=== PATIENT | male | born 1985 | race Caucasian/White ===

== ENCOUNTER 2017-05-01 17:25 | Inpatient (IN) | payer OTHER ==
[~2017-05-01] VITALS: Ht 165.1 cm; Wt 100.7 kg
[2017-05-01] VITALS (8 sets, daily range): BP systolic 109–150; BP diastolic 55–97
[~2017-05-01 17:25] MED LIST: CIPRO 500MG TA500 MG PO; LORTAB 5/500 501 TAB PO; NOMEDS XX
[2017-05-01 17:53] LABS: URINE BILIRUBIN - DIPSTICK NEGATIVE (NEG); URINE BLOOD NEGATIVE (NEG)
[2017-05-01 18:00] LABS: HEMOGLOBIN 16.3 g/dL (14.1-18.0); LYMPH # 3.3 K/mm3 (0.7-4.5); LYMPH % 21.7 % (10-50)
[2017-05-01 18:01] LABS: URINE SQUAMOUS CELLS OCC #/hpf (OCC)
[2017-05-01 18:03] LABS: AMPHETAMINES/METAMPHETAMINES NEGATIVE ng/mL (<1000)
--- NOTE | 2017-05-01 19:07 | Emergency Room Report ---
History of Present Illness Time Seen by 1830 Presenting Problem in Triage Pt arrived:Walked Presenting Problem:CHEST PAIN FOR TWO DAYS INTERMITTENTLY. LEFT MID CHEST.ENDORSES SOA ALSO WITH EPISODES OF CHEST PAIN. EPISODES OF LEFT ARM WEAKNESS, TINGLING TODAY. 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 N Clinical Suspician of Infection? N Mental Status: 1 - Regular (Normal Baseline) Sepsis Risk:Possible Sepsis Risk Have you (or family members/close friends) recently traveled outside the [place]? N If Yes, where/when: Have you had exposure to infectious disease within the past month? TB? Other? Specify: Source patient, RN notes reviewed, RN/MD Exam Limitations no limitations Comment This is a 31-year-old gentleman arriving to the emergency room with chest pain since Saturday (past 4 days), triggered by activity, relieved by rest. Patient describes the pain is precordial, squeezing in nature, radiating to his LEFT jaw, LEFT shoulder and down the LEFT upper extremity, associated with palpitations and shortness of breath. Patient spent 2 days at [facility], Saturday and Saturday, thinking that he has a "cold", however, upon returning back call his chest pain progressed. He went to work today where he realized that his pain is actually more pronounced, more intense, more correlating with activity. Patient has a history of cocaine abuse while he was in his 20s. The most recently abused drug was made marijuana approximately one year ago. His father has developed "heart problems, congestive heart failure" in his 40s. Patient smokes one pack visit today. Cardiac Chest Pain Chest pain indicative of cardiac Yes Timing/Duration 4 days Timing/Duration 4 days Severity moderate Modifying Factors Improves With: lying down. Worsens With: exertion, movement, palpatioin. Associated Symptoms chest pain ALLERGIES Coded Allergies: Penicillins (05/01/17) Home Medications Reported Medications No Home Medications (NO HOME MEDICATIONS) 1 EACH XX ONCE History Medical History General Angina: No MS: No Hypertension? No Hyperlipidemia? No CHF? No COPD? No Asthma? No Hernia? No CVA? No Seizures? No Diabetes? No UTI? No Stones? No GB Disease: No Hepatitis? No Cataracts? No Glaucoma? No MRSA? No TB? No Cancer? No Immunization Hx DT/Tetanus > 10 Years Ago Flu IN PAST Pneumonia Never Had Surgical Hx Previous Surgery?N Family History Family Hx Diabetes No CAD No Hypertension No Hyperlipidemia No Cancer No TB No Social History Smoking Hx Smoker: Current Every Day Smoker Tobacco: Yes Type Cigarettes Packs/day 1 1/2 - 2 Packs Alcohol Alcohol: No Review of Systems All Other Systems Reviewed and Negative Respiratory shortness of breath Cardiovascular chest pain, palpitations Physical Exam Vital Signs Vital Signs Date Time Temp Pulse Resp B/P Pulse O2 O2 Flow FiO2 Ox Delivery Rate 05/01 2000 99.0 75 20 130/97 98 05/01 1950 99.0 75 20 130/97 98 ROOM AIR 05/01 1941 98.5 118 20 150/95 97 05/01 1726 98.5 118 20 150/95 97 General Appearance normal appearance, WD/WN, moderate distress Neck normal inspection, non-tender, supple, full range of motion Respiratory Status Yes: trachea midline, chest symmetrical, non tender chest. No: respiratory distress. Lung Sounds bilateral: normal breath sounds, lungs clear. Cardiovascular tachycardia Peripheral Pulses Pulses normal Yes Gastrointestinal normal bowel sounds, normal exam, non tender, soft, no organomegaly Back normal inspection, no CVA tenderness, no vertebral tenderness Extremities non-tender, normal range of motion, normal inspection Neurologic alert, can repairer II-XII nml as tested, normal exam, oriented x 3 Mental status anxious Skin intact, normal color, warm/dry Medical Decision Making LABS/Meds/Orders Pt receiving controlled substance in ED? No Comment 19:00-case d/w Dr Hager, advised of patient's history, presentation and findings, agreeable with hospitalization and management (Brillenta, Lovenox, Nitro gtt, ASA), plan to perform a cardiac catheterization in the morning. 19:10-case d/w Max, advised of all the above, agreeable with hospitalization as well. Care transferred Dr. Hager and Dr. Santana at this time. I will write temporary admission orders per hospital protocol. Upon patient's isn't patient to the floor the Intensive Care Unit nurse will contact both attending physicians in order to obtain full inpatient admission orders. Results/Orders Laboratory Tests 05/01/17 1740: Opiates Screen NEGATIVE, Urine Methadone Screen NEGATIVE, Barbiturates NEGATIVE, Phencyclidine Screen NEGATIVE, Amphetamines Screen NEGATIVE, Benzodiazepines Screen NEGATIVE, Cocaine Screen NEGATIVE, Marijuana (THC) Screen NEGATIVE, Urine Color YELLOW, Urine Appearance CLOUDY, Urine pH 8.0, Ur Specific [place] 1.015, Urine Protein NEGATIVE, Urine Ketones NEGATIVE, Urine Blood NEGATIVE, Urine Nitrate NEGATIVE, Urine Bilirubin NEGATIVE, Urine Urobilinogen 0.2, Ur Leukocyte Esterase NEGATIVE, Urine RBC OCC, Urine WBC OCC, Ur Squamous Epith Cells OCC, Amorphous Sediment 2+, Urine Bacteria 2+, Urine Glucose NEGATIVE 05/01/17 1725: Sodium 141, Potassium 3.8, Chloride 103, Carbon Dioxide 27, BUN 11, Creatinine 0.9, Estimated Creat Clear 177, Estimated GFR (MDRD) 99, Glucose 111 H, Calcium 9.1, Total Bilirubin 0.2, AST 39 H, ALT 106 H, Alkaline Phosphatase 93, Creatine Kinase 178, CK-MB (CK-2) Rel Index 2.9, CK and CKMB Interp 5.2 H, Troponin I 0.45 H, Total Protein 7.9, Albumin 3.9, Globulin 4.0 H, Albumin/ Globulin Ratio 1.0 L, WBC 15.3 H, RBC 5.27, Hgb 16.3, Hct 46.6, MCV 88.6, RDW 13.3, Plt Count 287, MPV 8.5, Gran % 71.4, Gran # 10.9 H, Total Counted 100, Lymphocytes % 21.7, Monocytes % 4.8, Eosinophils % 1.6, Basophils % 0.5, Neutrophils 75, Lymphocytes (Manual) 20, Lymphocytes # 3.3, Monocytes (Manual) 3 , Monocytes # 0.7, Eosinophils # 0.2, Eosinophils # (Manual) 2, Basophils # 0.1, Platelet Estimate NORMAL, PUBS MCHC 34.8, MCH 30.9 Current Medication Orders Sig/Celestino Start time Last Medication Dose Route Stop Time Status Admin Enoxaparin Sodium 100 MG ONCE ONE 05/01 1915 DC 05/01 SC 05/01 Metoprolol Tartrate 25 MG ONCE ONE 05/01 1915 DC 05/01 PO 05/01 1916 190 Nitroglycerin 1 IN ONCE ONE 05/01 1915 CAN TP 05/01 1916 Nitroglycerin/ 250 ML .Q25H 05/01 1915 AC 09/06 Dextrose IV 09/08 0434 1909 Ticagrelor 180 MG ONCE ONE 05/01 1915 DC 05/01 PO 05/01 191 2121 Nitroglycerin/ 250 ML .STK-MED ONE 05/01 1907 DC Dextrose IV Sodium Chloride 1,000 ML .STK-MED ONE 05/01 190 DC IV Metoprolol Tartrate 0 .STK-MED ONE 05/01 190 DC .ROUTE Nitroglycerin 0 .STK-MED ONE 05/01 190 DC .ROUTE Sodium Chloride 1,000 ML .Q1H1M 05/01 190 DC 05/01 IV 05/01 2000 190 Sodium Chloride 10 ML PRN PRN 05/01 190 AC IV 05/02 184 Sodium Chloride 1,000 ML .STK-MED ONE 05/01 184 DC IV Aspirin 324 MG ONCE ONE 05/01 1745 DC 05/01 PO 05/01 1746 1735 Sodium Chloride 10 ML PRN PRN 05/01 1745 AC IV 05/02 1732 Aspirin 0 .STK-MED ONE 05/01 173 DC .ROUTE Orders Procedure Date/time Status Decision to admit 05/01 1916 Active CULTURE, URINE 05/01 1740 Active URINALYSIS/COMPLETE 05/01 1738 Complete DRUG ABUSE SCREEN (10) 05/01 1738 Complete [facility]AD [facility] 05/01 1732 Active ELECTROCARDIOGRAM REQUEST 05/01 1732 Active IV SALINE LOCK 05/01 173 Active CBC WITH AUTO DIFF 05/01 1732 Complete CARDIAC ENZYMES 05/01 173 Complete CHEM 12 PROFILE 05/01 1732 Complete DIFFERENTIAL-WBC 05/01 1725 Complete CM/EKG CM/EKG 1 Monitor Rhythm Sinus Tachycardia Rate 126 Ectopy No Comments no acute ischemic changes EKG rate (126), rhythm (regularm tachycardic), no evid. of ischemic chgs, no ectopy CM/EKG 2 Monitor Rhythm Sinus Tachycardia Rate 101 Ectopy No Comments No acute ischemic changes EKG rate (101), rhythm (tachy, regular), no evid. of ischemic chgs, no ectopy , no EKG for comparison, non-spec. ST/Twave chgs, ST elevation, ST depression, LBBB, RBBB, ectopy, abnormal Q waves XRAY/CT/US XRAY/CT/US XRAY chest XR interpretation by reviewed by me Xray Results no infiltrates, normal heart size, normal lung inflation michell Consult MD Physician Consult Consult/PCP Dr Hager ZAC Score for N-Stemi/Angina ZAC N-STEMI SCORE ZAC N-STEMI SCORE Response Value Age of patient Less than 65 yrs 0 Number of risk factors for CAD Presence of less than 3 0 Prior coronary artery stenosis (seen in angiography) Less than 50% 0 ST-Segment deviation on ECG (>1 min) Absent 0 Prior aspirin intake No ASA in the last 7 days 0 Severe anginal chest pain 2 or more episodes/24hr 1 Elevated cardiac markers(CK-MB or troponin) Present 1 Total 2 Risk Stratification 0-2= Low Risk Patients Complicating Factors Factors/Issues Noted Abnormal vital signs, comp.acute illness or inj, high risk presentation, other co-morbid states (drug abuse) Departure Departure Time of Disposition 1913 Disposition Still a Patient Clinical Impression Primary Impression: NSTEMI (non-ST elevated myocardial infarction) Secondary Impressions: Abnormal LFTs, History of drug abuse, Tobacco abuse Condition STABLE ED Critical Care Critical Care Yes Time spent 30-74 min Vital system(s) involved: Circulatory Failure I was present at bedside for Coordinating pt's care, Interpreting EKGs/Strips , During my initial exam, Reviewing lab results, Reviewing old records, Discussing pt condition, For re-examinations, Examining radiographs If Critical Care minutes are documented, the time involved in the performance of seperately reportable procedures was not counted toward critical care time documented. I directly delivered medical care to this critically ill and/or injured patient. Timely evaluation and treatment was necessary to address the significant organ system(s) dysfunction present in this patient. at 0906
[2017-05-01 19:11] LABS: NEUTROPHILS 75 % (42-76)
--- NOTE | 2017-05-01 20:01 | HISTORY AND PHYSICAL REPORT ---
History and Physical ([facility]) Date of admission: 05/01/17 Chief complaint: Chest pain History: History of Present Illness: This 31-year-old white male is admitted with chest pain and apparent myocardial infarction. He states that he had pain through the weekend while he was at [facility]. It was exertional pain. It was associated with shortness of breath. He actually worked the past 2 days but persisted with pain on exertion. He presents to the emergency room this evening with tachycardia and chest pain. His troponin is elevated. There is suggestion of anterior lateral ST elevation which is evident after his tachycardia was treated. Dr. Hager has been contacted. Patient will be monitored in the unit tonight. Cardiac cath will be performed in the morning. Past Medical History: Medical History: CAD? No (no prior history) Angina: Yes (apparently from his history) MS: No (no prior known MS) Hypertension? Yes Hyperlipidemia? No CHF? No DVT? No PE? No COPD? No (1 pack per day) Asthma? No Anemia? No GERD? No Gastric ulcers? No GI Bleed? No Hernia? No Thyroid Problems? No Hypothyroidism? No CVA? No Seizures? No Diabetes? No Renal Insuffiency? No UTI? No Stones? No BPH? No GB Disease: No Hepatitis? No Arthritis? No Migraines? No Cataracts? No Glaucoma? No MRSA? No HIV? No TB? No Anxiety? No Depression? No Cancer? No Surgical history: Previous Surgery? Finger laceration repair Sebaceous cyst removal Oral surgery-complete dental extractions Medications: Reported Medications No Home Medications (NO HOME MEDICATIONS) 1 EACH XX ONCE Allergies: Coded Allergies: Penicillins (05/01/17) Family History: Family history: Postive for: CAD, CAD under 40 yrs of age, cancer, hyperlipidemia. Negative for : gall bladder disease, stroke. Additional family history: His father of heart disease in his 40s. The patient is and has one biologic child and 4 stepchildren Social History: Smoking Hx Tobacco: Yes Smoker: Current Every Day Smoker Type: Cigarettes Packs/day: 1 1/2 - 2 Packs Are you exposed to second hand Yes Alcohol: Alcohol: No Hx of Drug Use: Drug Use? Yes Drug(s) of Choice: cocaine (in the past), more recently marijuana. 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 Review of Systems: Patient unresponsive? No Constitutional No: chills, fatigue, lethargy, malaise, weak, recent weight loss. ENT No: ear ache, nose bleed, ear drainage, hearing loss, mouth pain, nasal congestion, ear ringing, sinus problems, sore throat, throat swelling, tongue pain, tongue swelling, toothache, voice change. Cardiovascular Positive for: SEO, chest pain, palpitations. Respiratory Positive for: dyspnea on exertion, shortness of air. No: productive cough ( sputum), wheezing. GI No: GERD, abdominal pain, constipation, diarrhea, vomitting. (male) No: flank pain. Skin No: abrasions, bruising, itching, rash. Neurological No: change in LOC, bladder dysfunction, bowel dysfunction, confusion, dizziness, seizure, syncope. Immune/allergy Positive for: allergy (penicillin). Eyes No: blurry vision, vision loss. Musculoskeletal No: extremity pain, extremity swelling. Heme No: bleeding, bruising. Endocrine No: cold intolerance, polydipsia. Psychiatric Positive for: anxious, stress. No: agitation, confused, delusional, depression. Physical Exam: Vital signs: 1ST Vital Signs Result Date Time Pulse Ox 97 05/01 172 B/P 150/95 05/01 172 Temp 98.5 05/01 172 Pulse 118 05/01 172 Resp 20 05/01 172 Exam: General appearance: normal appearance, alert, no acute distress Eyes: anicteric, conjunctiva clear, PERRLA ENT: mucous membranes moist, edentulous Neck: no carotid bruit, no JVD, thyroid (normal) Cardiovascular: regular rate & rhythm, no murmur Respiratory: aerating well, clear to auscultation, chest non-tender ABD: soft, no tenderness, obese Genitourinary: normal voiding & quantity Extremities: no peripheral edema Musculoskeletal: equal muscle strength Skin: dry, intact Neuro: alert, oriented, speech clear Lab data: Labs: Laboratory Tests 05/01/17 1740: Opiates Screen NEGATIVE, Urine Methadone Screen NEGATIVE, Barbiturates NEGATIVE, Phencyclidine Screen NEGATIVE, Amphetamines Screen NEGATIVE, Benzodiazepines Screen NEGATIVE, Cocaine Screen NEGATIVE, Marijuana (THC) Screen NEGATIVE, Urine Color YELLOW, Urine Appearance CLOUDY, Urine pH 8.0, Ur Specific [place] 1.015, Urine Protein NEGATIVE, Urine Ketones NEGATIVE, Urine Blood NEGATIVE, Urine Nitrate NEGATIVE, Urine Bilirubin NEGATIVE, Urine Urobilinogen 0.2, Ur Leukocyte Esterase NEGATIVE, Urine RBC OCC, Urine WBC OCC, Ur Squamous Epith Cells OCC, Amorphous Sediment 2+, Urine Bacteria 2+, Urine Glucose NEGATIVE 05/01/17 1725: Sodium 141, Potassium 3.8, Chloride 103, Carbon Dioxide 27, BUN 11, Creatinine 0.9, Estimated Creat Clear 177, Estimated GFR (MDRD) 99, Glucose 111 H, Calcium 9.1, Total Bilirubin 0.2, AST 39 H, ALT 106 H, Alkaline Phosphatase 93, Creatine Kinase 178, CK-MB (CK-2) Rel Index 2.9, CK and CKMB Interp 5.2 H, Troponin I 0.45 H, Total Protein 7.9, Albumin 3.9, Globulin 4.0 H, Albumin/ Globulin Ratio 1.0 L, WBC 15.3 H, RBC 5.27, Hgb 16.3, Hct 46.6, MCV 88.6, RDW 13.3, Plt Count 287, MPV 8.5, Gran % 71.4, Gran # 10.9 H, Total Counted 100, Lymphocytes % 21.7, Monocytes % 4.8, Eosinophils % 1.6, Basophils % 0.5, Neutrophils 75, Lymphocytes (Manual) 20, Lymphocytes # 3.3, Monocytes (Manual) 3 , Monocytes # 0.7, Eosinophils # 0.2, Eosinophils # (Manual) 2, Basophils # 0.1, Platelet Estimate NORMAL, PUBS MCHC 34.8, MCH 30.9 Microbiology 05/01 1740 URINE CC: Urine Culture - RECD Diagnosis(es): 1. Abnormal LFTs 2. History of drug abuse 3. Tobacco abuse 4. ST elevation (STEMI) myocardial infarction Additional information: Electrocardiograms were reviewed. His initial electrocardiogram shows a tachycardia. After treatment there is evidence of some ST elevation in the anterior lateral leads Plan: See orders. Dr. Hager has been contacted. Patient will be monitored in the unit this evening. He is on a nitroglycerin drip and has received beta lennox. at 2000
--- NOTE | 2017-05-01 20:46 | RADIOLOGY REPORT PS360 ---
CHEST-PORTABLE HISTORY: CHEST PAIN X 2 DAYS ORDERING PHYSICIAN: PATIENT AGE: 31 years COMPARISON: None available FINDINGS: The cardiomediastinal silhouette and pulmonary vascularity are within normal limits. The lungs are clear without infiltrates, suspicious nodules, or pleural effusions. No acute bony abnormalities. IMPRESSION: Negative chest, no acute finding
[2017-05-02] VITALS (22 sets, daily range): BP systolic 103–142; BP diastolic 53–94
--- NOTE | 2017-05-02 07:17 | CONSULT NOTE ---
Standard Demographics Patient Demo Date of Consultation: 05/02/17 Referring Provider: Ana Santana MD Reason for Consultation: NSTEMI PRIMARY DIAGNOSIS: NONSTEMI Problem list Problem list: 1. Tobacco use, started age 14, 1 ppd 2. History of drug use, cocaine (remote) and marijuana 3. Family history of coronary artery disease, uncle with first myocardial infarction at age 40, father of with history of congestive heart failure in his 40's 4. Hypertension History of present illness: History of present illness: 31-year-old white male with one-week history of increasing shortness of breath and chest pain with exertion. This coincided with "cold symptoms" without fever, chills, nausea or vomiting. Symptoms were progressive in nature and yesterday included LEFT arm pain which prompted his visit to the emergency department. Workup in the ER revealed elevated troponins with electrocardiogram showing sinus tachycardia with questionable ST segment elevation versus early repolarization changes in V1 and V2. Patient was started on beta lennox therapy , anticoagulant and antiplatelet therapy along with nitroglycerin. He was admitted for planned cardiac catheterization today. He denies any further chest pain, shortness of breath or arm pain this morning. Denies any history of treatment for diabetes, hypertension or hyperlipidemia. Past Medical History: General: Hypertension Yes CVA No Seizures No TB No COPD No (1 pack per day) Asthma No Diabetes No Angina Yes (apparently from his history) WI No (no prior known [place]) Hyperlipidemia No Urinary No Cancer No Rheumatic H.D. No Ulcers No MRSA No GB Disease No Past Surgical HX: Previous Surgery?N Allergies Coded Allergies: Penicillins (05/01/17) Home medications: Reported Medications No Home Medications (NO HOME MEDICATIONS) 1 EACH XX ONCE Current Medications: Current Medications Aspirin 325 MG DAILY PO (UNV) Ticagrelor 90 MG DAILY PO (UNV) Fentanyl Citrate 25 MCG PRN PRN IV (UNV) Fentanyl Citrate 50 MCG PRN PRN IV (UNV) Flumazenil 0.2 MG PRN PRN IV (UNV) Heparin Sodium (Beef Lung) 5,000 UNITS PRN PRN IV (UNV) Heparin Sodium/Sodium Chloride 3,000 UNITS PRN PRN IV (UNV) Lidocaine HCl 20 ML ONCE ONE IJ (UNV) Midazolam HCl 1 MG PRN PRN IV (UNV) Midazolam HCl 1 MG PRN PRN IV (UNV) Naloxone HCl 0.4 MG [id number] PRN IV (UNV) Nitroglycerin 800 MCG PRN PRN IV (UNV) Verapamil HCl 5 MG PRN PRN IV (UNV) Acetaminophen 650 MG Q6HP PRN PO Metoprolol Tartrate 0 .STK-MED ONE .ROUTE (DC) Acetaminophen 0 .STK-MED ONE PO (DC) Enoxaparin Sodium 100 MG BID SC (UNV) Metoprolol Tartrate 25 MG BID PO (UNV) Nicotine 21 MG DAILYP PRN TD (UNV) Nitroglycerin/Dextrose 250 ML .Q25H IV (UNV) Enoxaparin Sodium 100 MG ONCE ONE SC (DC) Metoprolol Tartrate 25 MG ONCE ONE PO (DC) Nitroglycerin 1 IN ONCE ONE TP (CAN) Nitroglycerin/Dextrose 250 ML .Q25H IV Ticagrelor 180 MG ONCE ONE PO (DC) Nitroglycerin/Dextrose 250 ML .STK-MED ONE IV (DC) Sodium Chloride 1,000 ML .STK-MED ONE IV (DC) Metoprolol Tartrate 0 .STK-MED ONE .ROUTE (DC) Nitroglycerin 0 .STK-MED ONE .ROUTE (DC) Sodium Chloride 1,000 ML .Q1H1M IV (DC) Sodium Chloride 10 ML PRN PRN IV Sodium Chloride 1,000 ML .STK-MED ONE IV (DC) Aspirin 324 MG ONCE ONE PO (DC) Sodium Chloride 10 ML PRN PRN IV Aspirin 0 .STK-MED ONE .ROUTE (DC) Immunization HX DT/Tetanus 1-4 Years Flu IN PAST Pneumonia Never Had TB Test in last year No Family history Family HX Family Hx Insignificant No Diabetes Yes CAD No Hypertension Yes Hyperlipidemia No Cancer Yes TB No Social Hx: Smoking HX Tobacco Yes Type Cigarettes Packs/day < 1 PACK Are you/the child exposed to second-hand smoke: Yes Alcohol Alcohol: No Hx of Drug Use Drug Use? Yes Drug(s) of Choice: marijuana Patien't marital status is Patient's support system is good Review of systems: Constitutional see HPI. Respiratory cough, SOB with excertion. Cardiovascular see HPI, chest pain Gastrointestinal/Abdominal No no symptoms reported Genitourinary No: no symptoms reported. Musculoskeletal No: no symptoms reported. Neurological No: no symptoms reported. Exam: Admission Vital Signs: 1ST Vital Signs Result Date Time Pulse Ox 97 05/01 1726 B/P 150/95 05/01 1726 Temp 98.5 05/01 1726 Pulse 118 05/01 1726 Resp 20 05/01 1726 O2 Delivery ROOM AIR 05/01 1950 Last Vital Signs: Vital Signs Result Date Time Pulse Ox 98 05/02 637 B/P 124/65 05/02 637 O2 Delivery ROOM AIR 05/02 637 Pulse 78 05/02 637 Resp 23 05/02 637 Temp 98.2 05/02 0400 Exam General appearance: alert, awake, no acute distress Neck: no carotid bruit, no JVD Cardiovascular: regular rate & rhythm, no murmur Respiratory: clear to auscultation, good air movement ABD: soft, no tenderness Extremities: moves all, no peripheral edema Neuro: alert, intact, oriented Laboratory data: Laboratory Tests 05/02/17314: Creatine Kinase 166, CK-MB (CK-2) Rel Index 4.6 H, CK and CKMB Interp 7.6 H, Troponin I 3.04 H 05/01/172054: Creatine Kinase 166, CK-MB (CK-2) Rel Index 3.9, CK and CKMB Interp 6.5 H, Troponin I 1.23 H 05/01/17 1740: Opiates Screen NEGATIVE, Urine Methadone Screen NEGATIVE, Barbiturates NEGATIVE, Phencyclidine Screen NEGATIVE, Amphetamines Screen NEGATIVE, Benzodiazepines Screen NEGATIVE, Cocaine Screen NEGATIVE, Marijuana (THC) Screen NEGATIVE, Urine Color YELLOW, Urine Appearance CLOUDY, Urine pH 8.0, Ur Specific [place] 1.015, Urine Protein NEGATIVE, Urine Ketones NEGATIVE, Urine Blood NEGATIVE, Urine Nitrate NEGATIVE, Urine Bilirubin NEGATIVE, Urine Urobilinogen 0.2, Ur Leukocyte Esterase NEGATIVE, Urine RBC OCC, Urine WBC OCC, Ur Squamous Epith Cells OCC, Amorphous Sediment 2+, Urine Bacteria 2+, Urine Glucose NEGATIVE 05/01/171724: Sodium 141, Potassium 3.8, Chloride 103, Carbon Dioxide 27, BUN 11, Creatinine 0.9, Estimated Creat Clear 177, Estimated GFR (MDRD) 99, Glucose 111 H, Calcium 9.1, Total Bilirubin 0.2, AST 39 H, ALT 106 H, Alkaline Phosphatase 93, Creatine Kinase 178, CK-MB (CK-2) Rel Index 2.9, CK and CKMB Interp 5.2 H, Troponin I 0.45 H, Total Protein 7.9, Albumin 3.9, Globulin 4.0 H, Albumin/ Globulin Ratio 1.0 L, WBC 15.3 H, RBC 5.27, Hgb 16.3, Hct 46.6, MCV 88.6, RDW 13.3, Plt Count 287, MPV 8.5, Gran % 71.4, Gran # 10.9 H, Total Counted 100, Lymphocytes % 21.7, Monocytes % 4.8, Eosinophils % 1.6, Basophils % 0.5, Neutrophils 75, Lymphocytes (Manual) 20, Lymphocytes # 3.3, Monocytes (Manual) 3 , Monocytes # 0.7, Eosinophils # 0.2, Eosinophils # (Manual) 2, Basophils # 0.1, Platelet Estimate NORMAL, PUBS MCHC 34.8, MCH 30.9 Microbiology Date/Time Procedure - Status Source Growth 05/01 1740 Urine Culture - RECD URINE CC Plan: Assessment: 1. Non-ST elevation myocardial infarction. Patient has been started on aspirin, Brilinta, Lovenox along with beta lennox and nitroglycerin. Plans for cardiac catheterization this a.m. 2. Tobacco use, cessation recommended. 3. Elevated LFTs 4. Family history of ASHD Recommendations: See above. at 1125
--- NOTE | 2017-05-02 08:27 | PHARMACY CLINIC NOTE ---
Patient Demographics Patient Demographics Admission date: 05/01/17 Date: 05/02/17 Time: 826 Allergies Coded Allergies: Penicillins (05/01/17) HEIGHT- FT: 5 IN: 5.00 K.868 VTE General Information Labs: Laboratory Tests 05/01 1725 Hematology Hgb (14.1 - 18.0 g/dL) 16.3 Hct (42.0 - 52.0 %) 46.6 Plt Count (142 - 424 K/mm3) 287 Disclaimer The following section includes nursing documentation that has been pulled in for pharmacy review. Patient's VTE score: 2 Patient's VTE Risk: VERY LOW RISK Clinical trial participant? No VTE prophylaxis [id number] VTE prophylaxis ordered? Yes Type of prophylaxis/treatment: MOHSEN at 0827
--- NOTE | 2017-05-02 08:48 | ACUTE CARE PROGRESS NOTE (QUA) ---
Progress Notes Subjective Date 05/02/17 Time 0740 Note Pt up ad jessica in room, notes he is feeling much better, NPO and awaiting cardiac cath this am. Pt denies any CP since admission, denies SOB, denies pain. He is voiding normally. Objective Findings Last VS-Temp:98.2 B/P:124/65 Pulse:78 Resp:23 SaO2:98 ROOM AIR Last weight lbs:222 oz:6 K.868 Method:Floor Scales Exam General appearance: alert, awake, no acute distress Cardiovascular: regular rate & rhythm, normal peripheral pulses Respiratory: CTAB A&P ABD: non-distended, no rebound, soft, no tenderness, no guarding, no organomegaly, no palpable mass, bowel sounds present Extremities: moves all, no peripheral edema, warm, no calf tenderness, bilateral MOHSEN hose in place Neuro: alert, oriented, speech clear, no focal deficit Reviewed: medications, vital signs, lab results, radiology report, consult note, nursing notes Assessment/Plan Problem List 1. Abnormal LFTs 2. History of drug abuse 3. Tobacco abuse 4. ST elevation (STEMI) myocardial infarction Patient condition Stable Plan: cardiac cath this morning This inpt stay is expected to cross 2 MNs from start of care No at 0848
--- NOTE | 2017-05-02 11:38 | RADIOLOGY REPORT PS360 ---
CARDIAC CATHETERIZATION DATE OF CATHETERIZATION:05/02/2017 9:38 AM PROCEDURES: CARDIAC CATHETERIZATION DATE OF CATHETERIZATION:05/02/2017 9:38 AM PROCEDURES: 1. Left heart catheterization 2. Left ventriculogram 3. Selective coronary angiogram 4. Drug-eluting stent deployment to the ostial proximal mid obtuse marginal artery off the dominant circumflex artery INDICATION FOR TEST: 1. Acute non-ST elevation myocardial infarction 2. Coronary artery disease Informed consent was obtained prior to the procedure. COMPLICATIONS: None ESTIMATED BLOOD LOSS: Less than 10 ml. TECHNIQUE: One percent lidocaine used to anesthetize the right anterior aspect of the wrist. The right radial artery was accessed via the Seldinger technique. A 6 Tristanian sheath was placed in the right radial artery. 2.5 mg of verapamil, 800 mcg of nitroglycerin and 5000 U Heparin were given through the arterial sheath. The trap catheter was used to perform left heart catheterization left ventriculogram and selective coronary angiography. At the end of the diagnostic angiogram and additional 5000 units of heparin was administered intravenously. The ACT was greater than 400. An Figure 1 left guide catheter was used intubate the left main artery and a BMW wire was used to traverse the stenosis in the first obtuse marginal artery. A 2.25 x 30 mm resolute [place] stent was deployed at 12 alize reducing the 99% stenosis to 0%. Ostially a residual stenosis was present therefore an additional 2.25 x 9 mm resolute [place] stent was placed ostially overlapping the first stent and deployed at 16 alize. ZAC-3 flow was present before and after the procedure. Patient artery received Brilinta loading dose in the emergency department as well as 90 mg this morning. At the end of the procedure the sheath was removed good hemostasis was achieved using TR banding patient was transferred to the postop holding area in stable condition ANGIOGRAPHIC RESULTS: 1. The left main artery normal 2. The left anterior descending artery proximally has 20% stenoses with mid vessel 30% stenoses. 3. The ramus intermedius is a medium to large vessel and has proximal and mid vessel 20% stenoses 4. The circumflex artery is a dominant vessel giving rise to a first obtuse marginal artery which has an ostial 80 and a proximal 99% stenosis. The distal vessels in 3 obtuse marginal arteries have mild nonflow limiting disease 5. The right coronary artery is a small nondominant vessel and has a proximal 80% stenosis 6. The VELEZ ventriculogram reveals normal 65% 7. The left ventricular end-diastolic pressure elevated at 20 mmHg IMPRESSION: 1. Severe single vessel coronary artery disease as described above 2. Successful stenting of the ostial first obtuse marginal artery critical disease reduced to 0% with 2 drug-eluting stents as described above 3. Normal ejection fraction 4. Mild to moderately elevated LVEDP 5. Severe disease in a small nondominant proximal right coronary artery PLAN: 1. Brilinta and aspirin for one year 2. LDL less than 55 3. Absolute avoidance of tobacco products 4. Risk factor modification 5. Mathew inhibitors plus carvedilol 6. Cardiac rehabilitation 7. I would like to treat the small nondominant right coronary artery medically. This is a small vessel and very unlikely to produce angina in the future given that only supplies the right ventricle with no communication with the left ventricle 1. 2. 3. 4. INDICATION FOR TEST: 1. 2. 3. Informed consent was obtained prior to the procedure. COMPLICATIONS: ESTIMATED BLOOD LOSS: Less than 10 ml. TECHNIQUE: One percent lidocaine was used to anesthetize the right groin. The right femoral artery was accessed via the Seldinger technique. A 4-Tristanian sheath was placed in the right femoral artery. The JL-4 and JR-4 catheter was also used to perform left heart catheterization and left ventriculography. At the end of the procedure the patient was transferred to the post-op holding area in stable condition for arterial sheath removal. ANGIOGRAPHIC RESULTS: 1. The left main artery 2. The left anterior descending artery 3. The circumflex artery 4. The right coronary artery 5. The VELEZ ventriculogram reveals 6. The left ventricular end-diastolic pressure IMPRESSION: 1. coronary arteries. 2. 3. 4. 5. PLAN: 1. 2. 3.
[2017-05-03] VITALS: BP 107/61
[2017-05-03 02:00] VITALS: BP 104/59
[2017-05-03 04:00] VITALS: BP 110/63
--- NOTE | 2017-05-03 07:30 | ACUTE CARE PROGRESS NOTE (QUA) ---
Progress Notes Subjective Date 05/03/17 Time 0724 Note 31 yo WM in bed in NAD. Ready to go home. Objective Findings Last VS-Temp:98.0 B/P:110/63 Pulse:67 Resp:16 SaO2:94 ROOM AIR Last weight lbs:222 oz:1 K.726 Method:Bed Scales Exam General appearance: alert, awake, no acute distress Cardiovascular: regular rate & rhythm Respiratory: clear to auscultation Reviewed: medications, vital signs, lab results Assessment/Plan Problem List 1. Abnormal LFTs 2. History of drug abuse 3. Tobacco abuse 4. ST elevation (STEMI) myocardial infarction Assessment/Plan: On DAPT, statin and metoprolol. Qualifiers: Involved coronary artery: other coronary artery Qualified Code: I21.29 - ST elevation (STEMI) myocardial infarction involving other sites Patient condition Stable Plan: OK from cardiology standpoint to be discharged home today. Pt may return to work on 05/06/2017 with limitation of lifting no more than 10 lbs with right arm until follow up next week (saturday or saturday). Home on ASA 81 mg daily, Brilinta 90 mg BID, atorvastatin 40 mg daily and metoprolol 25 mg BID. This inpt stay is expected to cross 2 MNs from start of care No at 0730
[2017-05-03 07:50] VITALS: BP 145/98
[2017-05-03] MEDS ORDERED: LIPITOR40 M1 PO (09:00)
[2017-05-03] MEDS ORDERED: ASPIR 8181 MG PO (09:01)
[2017-05-03] MEDS ORDERED: BRILINTA90 MG PO (09:01)
[2017-05-03] MEDS ORDERED: LOPRESSOR 25MG.25 MG PO (09:02)
[2017-05-03] MEDS ORDERED: SUNMARK NI21 MG/24 H TD (09:03)
--- NOTE | 2017-05-03 09:06 | ACUTE CARE PROGRESS NOTE (QUA) ---
Progress Notes Subjective Date 05/03/17 Time 0904 Note The patient has remained stable through the night. He is anxious for discharge. He has no pain. He has been seen by cardiology. See medication list. Follow-up will be with Dr. Hager. Objective Findings Last VS-Temp:98.0 B/P:145/98 Pulse:62 Resp:18 SaO2:94 ROOM AIR Last weight lbs:222 oz:1 K.726 Method:Bed Scales Assessment/Plan Problem List 1. Abnormal LFTs 2. History of drug abuse 3. Tobacco abuse 4. ST elevation (STEMI) myocardial infarction Patient condition Stable Plan: initiate discharge plan This inpt stay is expected to cross 2 MNs from start of care Yes at 0906
[2017-05-03 10:15] VITALS: BP 145/98
--- NOTE | 2017-05-05 13:46 | DISCHARGE SUMMARY STANDARD ---
Discharge Summary (FCA2) Date of admission: 05/01/17 Date of discharge: 05/03/17 Problem List: 1. Abnormal LFTs 2. History of drug abuse 3. Tobacco abuse 4. ST elevation (STEMI) myocardial infarction History of present illness: Mr Sharma is a 31-year-old white male with one-week history of increasing shortness of breath and chest pain with exertion. He stated that he had pain over a weekend while at [facility]. He actually worked the 2 days prior to admission. This coincided with "cold symptoms" without fever, chills, nausea or vomiting. Symptoms were progressive in nature and then included LEFT arm pain which prompted his visit to the emergency department. Workup in the ER revealed elevated troponins with electrocardiogram showing sinus tachycardia with questionable ST segment elevation versus early repolarization changes in V1 and V2. Patient was started on beta lennox therapy , anticoagulant and antiplatelet therapy along with nitroglycerin. He was then admitted for planned cardiac catheterization. At time of exam he denied any further chest pain, shortness of breath or arm pain. He denied any history of treatment for diabetes, hypertension or hyperlipidemia. Exam on admission: Vital signs: 1ST Vital Signs Result Date Time Pulse Ox 97 05/01 172 B/P 150/95 05/01 1726 Temp 98.5 05/01 172 Pulse 118 05/01 172 Resp 20 05/01 172 Exam: General appearance: normal appearance, alert, no acute distress Eyes: anicteric, conjunctiva clear, PERRLA ENT: mucous membranes moist, edentulous Neck: no carotid bruit, no JVD, thyroid (normal) Cardiovascular: regular rate & rhythm, no murmur Respiratory: aerating well, clear to auscultation, chest non-tender ABD: soft, no tenderness, obese Genitourinary: normal voiding & quantity Extremities: no peripheral edema Musculoskeletal: equal muscle strength Skin: dry, intact Neuro: alert, oriented, speech clear Hospital Course: Patient ambulated in room after admission without CP; He had cardiac cath with stenting with plan as follows: 1. Brilinta and aspirin for one year 2. LDL less than 55 3. Absolute avoidance of tobacco products 4. Risk factor modification 5. Mathew inhibitors plus carvedilol 6. Cardiac rehabilitation 7. Treatment of the small nondominant right coronary artery medically. This was noted to be a small vessel and very unlikely to produce angina in the future given that it only supplies the right ventricle with no communication with the left ventricle 05/03/17 patient was anxious for discharge. He had no further CP or SOB. He was discharged. Laboratory data this visit: 05/01/17 1740: Opiates Screen NEGATIVE, Urine Methadone Screen NEGATIVE, Barbiturates NEGATIVE, Phencyclidine Screen NEGATIVE, Amphetamines Screen NEGATIVE, Benzodiazepines Screen NEGATIVE, Cocaine Screen NEGATIVE, Marijuana (THC) Screen NEGATIVE, Urine Color YELLOW, Urine Appearance CLOUDY, Urine pH 8.0, Ur Specific [place] 1.015, Urine Protein NEGATIVE, Urine Ketones NEGATIVE, Urine Blood NEGATIVE, Urine Nitrate NEGATIVE, Urine Bilirubin NEGATIVE, Urine Urobilinogen 0.2, Ur Leukocyte Esterase NEGATIVE, Urine RBC OCC, Urine WBC OCC, Ur Squamous Epith Cells OCC, Amorphous Sediment 2+, Urine Bacteria 2+, Urine Glucose NEGATIVE 05/01/17 1725: Sodium 141, Potassium 3.8, Chloride 103, Carbon Dioxide 27, BUN 11, Creatinine 0.9, Estimated Creat Clear 177, Estimated GFR (MDRD) 99, Glucose 111 H, Calcium 9.1, Total Bilirubin 0.2, AST 39 H, ALT 106 H, Alkaline Phosphatase 93, Creatine Kinase 178, CK-MB (CK-2) Rel Index 2.9, CK and CKMB Interp 5.2 H, Troponin I 0.45 H, Total Protein 7.9, Albumin 3.9, Globulin 4.0 H, Albumin/ Globulin Ratio 1.0 L, WBC 15.3 H, RBC 5.27, Hgb 16.3, Hct 46.6, MCV 88.6, RDW 13.3, Plt Count 287, MPV 8.5, Gran % 71.4, Gran # 10.9 H, Total Counted 100, Lymphocytes % 21.7, Monocytes % 4.8, Eosinophils % 1.6, Basophils % 0.5, Neutrophils 75, Lymphocytes (Manual) 20, Lymphocytes # 3.3, Monocytes (Manual) 3 , Monocytes # 0.7, Eosinophils # 0.2, Eosinophils # (Manual) 2, Basophils # 0.1, Platelet Estimate NORMAL, PUBS MCHC 34.8, MCH 30.9 05/02/17 0315: Creatine Kinase 166, CK-MB (CK-2) Rel Index 4.6 H, CK and CKMB Interp 7.6 H, Troponin I 3.04 H 05/01/172054: Creatine Kinase 166, CK-MB (CK-2) Rel Index 3.9, CK and CKMB Interp 6.5 H, Troponin I 1.23 H Imaging: CXR 05/01/17 IMPRESSION: Negative chest, no acute finding Cardiac catheterization 05/02/17 IMPRESSION: 1. Severe single vessel coronary artery disease as described above 2. Successful stenting of the ostial first obtuse marginal artery critical disease reduced to 0% with 2 drug-eluting stents as described above 3. Normal ejection fraction 4. Mild to moderately elevated LVEDP 5. Severe disease in a small nondominant proximal right coronary artery PLAN: 1. Brilinta and aspirin for one year 2. LDL less than 55 3. Absolute avoidance of tobacco products 4. Risk factor modification 5. Mathew inhibitors plus carvedilol 6. Cardiac rehabilitation 7. I would like to treat the small nondominant right coronary artery medically. This is a small vessel and very unlikely to produce angina in the future given that only supplies the right ventricle with no communication with the left ventricle Discharge medications: Continue taking these medications: No Home Medications (NO HOME MEDICATIONS) DOC 1 EACH Does Not Apply ONE TIME Start taking the following new medications: Atorvastatin Calcium (Lipitor 40MG) 40 MG TABLET 40 MILLIGRAM ORAL AT BEDTIME NIGHTLY Qty = 30 Refills = 2 Ticagrelor (Brilinta) 90 MG TABLET 90 MILLIGRAM ORAL TWICE A DAY Qty = 60 Refills = 2 Aspirin (Aspirin EC 81MG Tab) 81 MG TABLET. 81 MILLIGRAM ORAL DAILY Qty = 100 Refills = 2 Metoprolol Tartrate (Lopressor) 25 MG TABLET 25 MILLIGRAM ORAL TWICE A DAY Qty = 60 Refills = 2 Nicotine (Nicotine Patch 21MG) 1 EACH PATCH.TD24 21 MILLIGRAM TRANSDERM DAILY NEEDED as needed for SMOKING CESSATION Qty = 30 Refills = 2 Disposition: Discharged to home in stable and satisfactory condition. Follow up with: Alfonso Hager MD Follow up: 5 DAYS Activity: No lifting or straining Diet: Low Fat/Low Cholesterol Discharge to: HOME Agency needed? N Patient was instructed on smoking cessation. at 1345
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
--- OUTSIDE RECORDS SUMMARY | 2017-06-02 02:24 | External Medical Summary Rpt ---
Author Author , CHERYL LUNA Address Unknown Phone [email or web address] Immunization Name Date Rout CVX Reac Dose Comm Prov Is Faci e tion ent ider Refu lity Give sed n Tdap 12-0 115 0.5 Hist [facility] , 9-20 mL oric 1 1 Adso 14 al rbed Info rmat ion - Sour ce Unsp ecif ied Td 12-0 9 999 Hist H205 No H205 (brandon 2-20 oric lt), 02 al Info adso rmat rbed ion - Sour ce Unsp ecif ied Hep 02-2 42 999 Hist H109 No H109 B, 4-19 oric adol 99 al Info High rmat Ris ion - Sour ce Unsp ecif ied Hep 07-3 42 999 Hist H109 No H109 B, 1-19 oric adol 98 al Info High rmat Ris ion - Sour ce Unsp ecif ied MMR 06-1 3 999 Hist H109 No H109 2-19 oric 98 al Info rmat ion - Sour ce Unsp ecif ied Hep 06-1 42 999 Hist H109 No H109 B, 2-19 oric adol 98 al Info High rmat Ris ion - Sour ce Unsp ecif ied
--- OUTSIDE RECORDS SUMMARY | 2017-06-02 02:24 | External Medical Summary Rpt ---
Author Author CHERYL Cardenas, CHERYL [employer] Organization [employer] Address Unknown Phone Unavailable Results Cardiac enzymes Observa Value Referen Units Interpr Notes Date tion ce etation Range Creatine 0 - 4.0 U/L High No Sep 7 kinase.MB informati 2017 3:15 /Creatine on in AM source kinase.to data deann [Ratio] in Serum or Plasma Creatine 0.0 - 3.6 ng/mL High No Sep 7 kinase.MB informati 2016 3:15 on in AM [Mass/vol source ume] in data Serum or Plasma Creatine 39 - 308 U/L Normal No Sep 7 kinase informati 2016 3:15 [Enzymati on in AM c source activity/ data volume] in Serum or Plasma Troponin 0.00 - ng/mL High Sep 7 I.cardiac 0.06 2016 3:15 CRITICAL AM [Mass/vol RESULTS ume] in Serum or RESU Plasma LTS CALLED TO: SYBIL 05/02/17 0357 Jorge A Rudd ictoria> 0.5 IS CONSISTEN T WITH MYOCARDIA L ISCHEMIA OR INFARCTIO N Cardiac enzymes Observa Value Referen Units Interpr Notes Date tion ce etation Range Creatine 0 - 4.0 U/L Normal No Sep 6 kinase.MB informati 2016 8:55 /Creatine on in PM source kinase.to data deann [Ratio] in Serum or Plasma Creatine 0.0 - 3.6 ng/mL High No Sep 6 kinase.MB informati 2016 8:55 on in PM [Mass/vol source ume] in data Serum or Plasma Creatine 39 - 308 U/L Normal No Sep 6 kinase informati 2017 8:55 [Enzymati on in PM c source activity/ data volume] in Serum or Plasma Troponin 0.00 - ng/mL High Sep 6 I.cardiac 0.06 2016 8:55 CRITICAL PM [Mass/vol RESULTS ume] in Serum or RESU Plasma LTS CALLED TO: SYBIL 05/01/17 [id number] Silvano,Gilsum nda> 0.5 IS CONSISTEN T WITH MYOCARDIA L ISCHEMIA OR INFARCTIO N Drugs identified in Urine by Screen method Observa Value Referen Units Interpr Notes Date tion ce etation Range Positive urine drug screen samples are stored for 7 days. Contact the Lab if confirmation of positives is needed. Ampheta NEGATIV <1000 ng/mL No No Sep 6 mine E informa informa 2017 [Presen tion in tion in 5:40 PM ce] in source source Urine data data by Screen method Barbitura <200 ng/mL No No Sep 6 peggy informati informati 2017 5:40 [Mass/vol on in on in PM ume] in source source Urine by data data Screen method Benzodiaz 200 ng/mL ng/mL No No Sep 6 epines informati informati 2017 5:40 [Mass/vol on in on in PM ume] in source source Serum or data data Plasma by Screen method Cocaine <300 ng/g No No Sep 6 [Mass/vol informati informati 2017 5:40 ume] in on in on in PM Unspecifi source source ed data data specimen Methadone <300 ng/mL No No Sep 6 informati informati 2017 5:40 [Mass/vol on in on in PM ume] in source source Unspecifi data data ed specimen Opiates <300 ng/mL No No Sep 6 [Mass/vol informati informati 2017 5:40 ume] in on in on in PM Unspecifi source source ed data data specimen Phencycli <25 ng/mL No No Sep 6 dine informati informati 2017 5:40 [Mass/vol on in on in PM ume] in source source Unspecifi data data ed specimen 11-Hydr NEGATIV <50 ng/mL No No Sep 6 oxy E informa informa 2017 delta-9 tion in tion in 5:40 PM source source tetrahy data data drocann abinol [Presen ce] in Unspeci fied specime n Urinalysis dipstick W Reflex Microscopic panel in Urine Observa Value Referen Units Interpr Notes Date tion ce etation Range Appeara CLOUDY CLEAR No No No Sep 6 nce of informa informa informa 2017 Urine tion in tion in tion in 5:40 PM source source source data data data Amorpho 2+ NONE No No No Sep 6 us informa informa informa 2017 sedimen tion in tion in tion in 5:40 PM t source source source [Presen data data data ce] in Urine sedimen t by Light microsc opy Bacteri 2+ O No No No Sep 6 a informa informa informa 2017 [Presen tion in tion in tion in 5:40 PM ce] in source source source Urine data data data sedimen t by Light microsc opy Bilirub NEGATIV NEG No No No Sep 6 in E informa informa informa 2017 [Presen tion in tion in tion in 5:40 PM ce] in source source source Urine data data data by Test strip Erythro NEGATIV NEG No No No Sep 6 cytes E informa informa informa 2017 [Presen tion in tion in tion in 5:40 PM ce] in source source source Urine data data data Color YELLOW YELLOW No No No Sep 6 of informa informa informa 2017 Urine tion in tion in tion in 5:40 PM source source source data data data Glucose NEG No No No Sep 6 [Mass/vol informati informati informati 2017 5:40 ume] in on in on in on in PM Urine by source source source Test data data data strip Ketones NEGATIV NEG mg/dL No No Sep 6 E informa informa 2017 [Presen tion in tion in 5:40 PM ce] in source source Urine data data by Automat ed test strip Mucus NEGATIV NEG No No No Sep 6 [Presen E informa informa informa 2016 ce] in tion in tion in tion in 5:40 PM Urine source source source sedimen data data data t by Light microsc opy Nitrite NEGATIV NEG No No No Sep 6 E informa informa informa 2017 [Presen tion in tion in tion in 5:40 PM ce] in source source source Urine data data data by Test strip pH of 5.0 - 8.5 No Normal No Sep 6 Urine informati informati 2017 5:40 on in on in PM source source data data Protein NEG mg/dL No No Sep 6 [Mass/vol informati informati 2017 5:40 ume] in on in on in PM Urine by source source Automated data data test strip Erythro OCC 0 rbc/hpf No No Sep 6 cytes informa informa 2017 [Presen tion in tion in 5:40 PM ce] in source source Urine data data sedimen t by Light microsc opy Specific 1.005 - No Normal No Sep 6 gravity 1.030 informati informati 2017 5:40 of Urine on in on in PM source source data data Epithel OCC OCC #/hpf No No Sep 6 ial informa informa 2017 cells.s tion in tion in 5:40 PM quamous source source data data [Presen ce] in Urine sedimen t by Microsc opy high power field Urobili 0.2 NEG E.U./dL No No Sep 6 nogen informa informa 2017 [Presen tion in tion in 5:40 PM ce] in source source Urine data data by Test strip Leukocyte O wbc/hpf No No Sep 6 s informati informati 2017 5:40 [#/volume on in on in PM ] in source source Urine data data Urinalysis dipstick W Reflex Microscopic panel in Urine Observa Value Referen Units Interpr Notes Date tion ce etation Range Appeara CLOUDY CLEAR No No No Sep 6 nce of informa informa informa 2017 Urine tion in tion in tion in 5:40 PM source source source data data data Bilirub NEGATIV NEG No No No Sep 6 in E informa informa informa 2017 [Presen tion in tion in tion in 5:40 PM ce] in source source source Urine data data data by Test strip Erythro NEGATIV NEG No No No Sep 6 cytes E informa informa informa 2017 [Presen tion in tion in tion in 5:40 PM ce] in source source source Urine data data data Color YELLOW YELLOW No No No Sep 6 of informa informa informa 2017 Urine tion in tion in tion in 5:40 PM source source source data data data Glucose NEG No No No Sep 6 [Mass/vol informati informati informati 2017 5:40 ume] in on in on in on in PM Urine by source source source Test data data data strip Ketones NEGATIV NEG mg/dL No No Sep 6 E informa informa 2016 [Presen tion in tion in 5:40 PM ce] in source source Urine data data by Automat ed test strip Mucus NEGATIV NEG No No No Sep 6 [Presen E informa informa informa 2016 ce] in tion in tion in tion in 5:40 PM Urine source source source sedimen data data data t by Light microsc opy Nitrite NEGATIV NEG No No No Sep 6 E informa informa informa 2017 [Presen tion in tion in tion in 5:40 PM ce] in source source source Urine data data data by Test strip pH of 5.0 - 8.5 No Normal No Sep 6 Urine informati informati 2017 5:40 on in on in PM source source data data Protein NEG mg/dL No No Sep 6 [Mass/vol informati informati 2016 5:40 ume] in on in on in PM Urine by source source Automated data data test strip Specific 1.005 - No Normal No Sep 6 gravity 1.030 informati informati 2016 5:40 of Urine on in on in PM source source data data Urobili 0.2 NEG E.U./dL No No Sep 6 nogen informa informa 2016 [Presen tion in tion in 5:40 PM ce] in source source Urine data data by Test strip CBC W Auto Differential panel in Blood Observa Value Referen Units Interpr Notes Date tion ce etation Range Basophils 0 - 0.2 K/MM3 Normal No Sep 6 informati 2016 5:25 [#/volume on in PM ] in source Blood by data Automated count Basophils 0.1 - 2.0 % Normal No Sep 6 /100 informati 2016 5:25 leukocyte on in PM s in source Blood by data Automated count Eosinophi 0.0 - 0.4 K/mm3 Normal No Sep 6 ls informati 2016 5:25 [#/volume on in PM ] in source Blood by data Automated count Eosinophi 0.1 - % Normal No Sep 6 ls/100 12.0 informati 2016 5:25 leukocyte on in PM s in source Blood by data Automated count Granulocy 1.3 - 8.0 K/mm3 High No Sep 6 peggy informati 2016 5:25 [#/volume on in PM ] in source Blood by data Automated count Granulocy 37.0 - % Normal No Sep 6 peggy/100 80.0 informati 2017 5:25 leukocyte on in PM s in source Blood by data Automated count Hematocri 42.0 - % Normal No Sep 6 t [Volume 52.0 informati 2017 5:25 on in PM Fraction] source of Blood data Hemoglobi 14.1 - g/dL Normal No Sep 6 n 18.0 informati 2017 5:25 [Mass/vol on in PM ume] in source Blood data Lymphocyt 0.7 - 4.5 K/mm3 Normal No Sep 6 es informati 2017 5:25 [#/volume on in PM ] in source Unspecifi data ed specimen by Automated count Lymphocyt 10 - 50 % Normal No Sep 6 es informati 2017 5:25 [#/volume on in PM ] in source Unspecifi data ed specimen by Automated count Erythrocy 27 - 31.2 pg Normal No Sep 6 te mean informati 2017 5:25 corpuscul on in PM ar source hemoglobi data n [Entitic mass] Erythrocy 31.8 - g/dl Normal No Sep 6 te mean 35.4 informati 2017 5:25 corpuscul on in PM ar source hemoglobi data n concentra tion [Mass/vol ume] by Automated count Erythrocy 82.2 - fl Normal No Sep 6 te mean 97.8 informati 2017 5:25 corpuscul on in PM ar volume source [Entitic data volume] by Automated count Monocytes 0.1 - 1.0 K/mm3 Normal No Sep 6 informati 2017 5:25 [#/volume on in PM ] in source Blood by data Automated count Monocytes 1.7 - 9.3 % Normal No Sep 6 /100 informati 2017 5:25 leukocyte on in PM s in source Blood by data Automated count Platelet 7.4 - fl Normal No Sep 6 mean 10.4 informati 2016 5:25 volume on in PM [Entitic source volume] data in Blood by Automated count Platelets 142 - 424 K/mm3 Normal No Sep 6 informati 2017 5:25 [#/volume on in PM ] in source Blood data Erythrocy 4.6 - 6.2 M/mm3 Normal No Sep 6 peggy informati 2016 5:25 [#/volume on in PM ] in source Amniotic data fluid Erythrocy 11.5 - % Normal No Sep 6 te 17.5 informati 2016 5:25 distribut on in PM ion width source [Entitic data volume] by Automated count Leukocyte 4.8 - K/MM3 High No Sep 6 s 10.8 informati 2017 5:25 [#/volume on in PM ] in source Blood data Differential panel, method unspecified - Observa Value Referen Units Interpr Notes Date tion ce etation Range Eosinophi 0 - 3 % Normal No Sep 6 ls/100 informati 2017 5:25 leukocyte on in PM s in source Blood by data Manual count LYMPH 20 10 - 50 % Normal No Sep 6 informa 2017 tion in 5:25 PM source data Monocytes 2 - 9 % Normal No Sep 6 /100 informati 2017 5:25 leukocyte on in PM s in source Blood by data Automated count Platele NORMAL No No No No Sep 6 ts informa informa informa informa 2016 [Presen tion in tion in tion in tion in 5:25 PM ce] in source source source source Blood data data data data by Light microsc opy Neutrophi 42 - 76 % Normal No Sep 6 ls informati 2016 5:25 [#/volume on in PM ] in source Blood by data Automated count Cells No #CELLS No No Sep 6 Counted informati informati informati 2017 5:25 Total [#] on in on in on in PM in Blood source source source data data data Cardiac enzymes Observa Value Referen Units Interpr Notes Date ti ce etation Range Creatine 0 - 4.0 U/L Normal No Sep 6 kinase.MB informati 2017 5:25 /Creatine on in PM source kinase.to data deann [Ratio] in Serum or Plasma Creatine 0.0 - 3.6 ng/mL High No Sep 6 kinase.MB informati 2017 5:25 on in PM [Mass/vol source ume] in data Serum or Plasma Creatine 39 - 308 U/L Normal No Sep 6 kinase informati 2017 5:25 [Enzymati on in PM c source activity/ data volume] in Serum or Plasma Troponin 0.00 - ng/mL High 0.04 - Sep 6 I.cardiac 0.06 0.49 IS 2017 5:25 AN PM [Mass/vol INDETERMI ume] in NANT Serum or ZONEAnd Plasma can be consisten t with the following diseases: Trauma Criticall y ill patients Jimenez >30% TBSACHF Hypothyro idism Amyloidos isHyperte nsion Myocardit is SepsisHyp otension Rhabdomyo lysis Vital exhaust.P ostop surgery Pulmonary embolism CVARenal failure Acute neurologi remington disease Atrial fib. Comprehensive metabolic 2000 panel in Serum or Plasma Observa Value Referen Units Interpr Notes Date tion ce etation Range Albumin/G 1.1 - 1.8 No Low No Sep 6 lobulin informati informati 2017 5:25 [Mass on in on in PM ratio] in source source Serum or data data Plasma Albumin 3.4 - 5.0 gm/dL Normal No Sep 6 [Mass/vol informati 2017 5:25 ume] in on in PM Serum or source Plasma data Alkaline 46 - 116 U/L Normal No Sep 6 phosphata informati 2017 5:25 se on in PM [Enzymati source c data activity/ volume] in Serum or Plasma Bilirubin 0.2 - 1.0 mg/dL Normal No Sep 6 .total informati 2017 5:25 [Mass/vol on in PM ume] in source Serum or data Plasma Urea 7 - 18 mg/dL Normal No Sep 6 nitrogen informati 2017 5:25 [Mass/vol on in PM ume] in source Serum or data Plasma Calcium 8.5 - mg/dL Normal No Sep 6 [Mass/vol 10.1 informati 2017 5:25 ume] in on in PM Serum or source Plasma data Chloride 98 - 107 mmoL/L Normal No Sep 6 [Moles/vo informati 2017 5:25 lume] in on in PM Serum or source Plasma data Carbon 21.0 - mmoL/L Normal No Sep 6 dioxide, 32.0 informati 2017 5:25 total on in PM [Moles/vo source lume] in data Serum or Plasma Creatinin 0.70 - mg/dL Normal No Sep 6 e 1.30 informati 2016 5:25 [Mass/vol on in PM ume] in source Serum or data Plasma Creatinin 50 - 200 ML/MIN Normal No Sep 6 e renal informati 2016 5:25 clearance on in PM source predicted data by Cockcroft -Gault formula Estimated >60 ML/MIN No REFERENCE Sep 6 informati RANGE: 2017 5:25 glomerula on in >60 PM r source ML/MIN/1. filtratio data 73 SQUARE n rate METERSIf (GF this patient is -A merican, then multiply theresult by 1.210. Globulin 1.3 - 3.2 gm/dL High No Sep 6 [Mass/vol informati 2017 5:25 ume] in on in PM Serum source data Glucose 74 - 106 mg/dL High No Sep 6 [Mass/vol informati 2017 5:25 ume] in on in PM Serum or source Plasma data Potassium 3.5 - 5.1 mmoL/L Normal POTASSIUM Sep December 5:25 [Moles/vo FALSELY PM lume] in ELEVATED Serum or DUE TO Plasma SLIGHTLIP EMIA/HEMO LYSIS Sodium 136 - 145 mmoL/L Normal No Sep 6 [Moles/vo informati 2017 5:25 lume] in on in PM Serum or source Plasma data Aspartate 15 - 37 U/L High AST DecemberMay [id number] 5:25 aminotran FALSELY PM sferase ELEVATED [Enzymati DUE TO c SLIGHT activity/ LIPEMIA/H volume] EMOLYSIS in Serum or Plasma Alanine 12 - 78 U/L High No Sep 6 aminotran informati 2017 5:25 sferase on in PM [Enzymati source c data activity/ volume] in Serum or Plasma Protein 6.4 - 8.2 gm/dL Normal No Sep 6 [Mass/vol informati 2017 5:25 ume] in on in PM Serum or source Plasma data
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
--- OUTSIDE RECORDS SUMMARY | 2017-06-02 02:24 | External Medical Summary Rpt ---
Author Author , CHERYL LUNA Address Unknown Phone [email or web address] Immunization Name Date Rout CVX Reac Dose [...]
--- OUTSIDE RECORDS SUMMARY | 2017-06-02 02:24 | External Medical Summary Rpt ---
Author Author CHERYL Cardenas, CHERYL aScentias Organization [employer] Address Unknown Phone Unavailable [...] Plasma LTS CALLED TO: SYBIL 05/01/17 2144 Silvano,Dalton nda> 0.5 IS CONSISTEN T WITH MYOCARDIA [...]
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
--- OUTSIDE RECORDS SUMMARY | 2017-06-02 02:47 | External Medical Summary Rpt ---
Author Author , CHERYL LUNA Address Unknown Phone [email or web address] Immunization Name Date Rout CVX Reac Dose [...]
--- OUTSIDE RECORDS SUMMARY | 2017-06-02 02:47 | External Medical Summary Rpt ---
Author Author , CHERYL LUNA Address Unknown Phone [email or web address] Immunization Name Date Rout CVX Reac Dose [...]
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
--- OUTSIDE RECORDS SUMMARY | 2017-06-02 02:48 | External Medical Summary Rpt ---
Author Author CHERYL Cardenas, CHERYL [employer] Organization [employer] Address Unknown Phone Unavailable [...] Plasma LTS CALLED TO: SYBIL 05/01/17 2144 Silvano,Oran nda> 0.5 IS CONSISTEN T WITH MYOCARDIA [...]
--- OUTSIDE RECORDS SUMMARY | 2017-06-02 02:48 | External Medical Summary Rpt ---
Author Author CHERYL Cardenas, CHERYL [employer] Address Unknown Phone Unavailable [...] Plasma LTS CALLED TO: SYBIL 05/01/17 2144 Silvano,Tom Bean nda> 0.5 IS CONSISTEN T WITH MYOCARDIA [...]
== END 2017-05-03 10:00 | disposition home or self-care (01) | DRG 247 ==
LOC: ER 17:25 → 2ND 19:19
PROVIDERS: Emergency Medicine; Internal Medicine
PROC: 027034Z Dilation of Coronary Artery, One Artery with Drug-eluting Intraluminal Device, Percutaneous Approach (ICD-10-PCS; 2017-05-02)
PROC: B2111ZZ Fluoroscopy of Multiple Coronary Arteries using Low Osmolar Contrast (ICD-10-PCS; 2017-05-02)
PROC: 4A023N7 Measurement of Cardiac Sampling and Pressure, Left Heart, Percutaneous Approach (ICD-10-PCS; principal; 2017-05-02 14:00)
DX: I21.29 ST elevation (STEMI) myocardial infarction involving other sites (principal); I25.119 Atherosclerotic heart disease of native coronary artery with unspecified angina pectoris; Z72.0 Tobacco use; Z87.898 Personal history of other specified conditions
CPT/HCPCS: C1725; C1769; C1876; J1644; Q9967